=== PATIENT | female | born 1970 | race Caucasian/White ===

== ENCOUNTER 2016-10-08 12:10 | Emergency (ER) | payer SELFPAY ==
[~2016-10-08] VITALS: Ht 165.1 cm; Wt 74.0 kg
[2016-10-08 12:11] VITALS: BP 143/77; PULSE 106; RESP 20; TEMP 98.7; O2SAT 98
--- NOTE | 2016-10-08 12:41 | PD ---
HPI Chief Complaint: Cold / Flu Symptoms Time Seen by Provider: 12:29 Travel History International Travel<30 days: No Contact w/Intl Traveler<30days: No Traveled to known affect area: No History of Present Illness HPI 46-year-old female with history of no significant past medical issues, presents to the ER today for 1 week history of sore throat, body aches, nausea, vomiting , diarrhea, coughing and malaise. She states that her significant other may have just started having similar symptoms. However, she is here today because she states is not improving. Modifying Factors: None Associated Signs & Symptoms: Sore throat, body aches, nausea, vomiting, diarrhea , coughing and malaise Risk Factors: Possible sick contact PFSH Past Medical History ?: Not Past Surgical History Hysterectomy: Yes Social History Tobacco Use: No Allergies-Medications (Allergen,Severity, Reaction): Coded Allergies: No Known Allergies (Unverified , 10/08/16) Reported Meds & Prescriptions Reported Meds & Active Scripts Active No Active Prescriptions or Reported Medications Review of Systems Except as stated in HPI: all other systems reviewed are Neg Physical Exam Narrative GENERAL: Well-developed middle age female patient who is currently moderate distress. Awake and oriented 3. SKIN: Focused skin assessment warm/dry. HEAD: Atraumatic. Normocephalic. EYES: Pupils equal and round. No scleral icterus. No injection or drainage. ENT: No nasal bleeding or discharge. Mucous membranes pink and moist. Mild pharyngeal erythema with no significant exudates. Tonsillar pillars are symmetrical. NECK: Trachea midline. No JVD. CARDIOVASCULAR: Regular rate and rhythm. No murmur appreciated. RESPIRATORY: No accessory muscle use. Clear to auscultation. Breath sounds equal bilaterally. GASTROINTESTINAL: Abdomen soft, non-tender, nondistended. Hepatic and splenic margins not palpable. MUSCULOSKELETAL: No obvious deformities. No clubbing. No cyanosis. No edema. NEUROLOGICAL: Awake and alert. No obvious cranial nerve deficits. Motor grossly within normal limits. Normal speech. PSYCHIATRIC: Appropriate mood and affect; insight and judgment normal. Data Data Last Documented VS Vital Signs Date Time Temp Pulse Resp B/P Pulse Ox O2 Delivery O2 Flow Rate FiO2 10/08/16 12:25 106 19 98 Room Air 10/08/16 12:11 98.7 143/77 Orders Complete Blood Count With Diff (10/08/16 12:32) Basic Metabolic Panel (Bmp) (10/08/16 12:32) Influenzae A/B Antigen (10/08/16 12:32) Chest, Single Ap (10/08/16 12:32) Iv Access Insert/Monitor (10/08/16 12:32) Sodium Chlor 0.9% 1000 Ml Inj (Ns 1000 M (10/08/16 12:45) Ondansetron Inj (Zofran Inj) (10/08/16 12:45) Ketorolac Inj (Toradol Inj) (10/08/16 12:45) Urinalysis - C+S If Indicated (10/08/16 13:09) Urine Culture (10/08/16 13:20) Sulfamet-Trimeth Ds 800-160 Mg (Bactrim (10/08/16 14:00) Labs Laboratory Tests Test 10/08/16 10/08/16 12:48 13:20 White Blood Count 15.2 TH/MM3 Red Blood Count 4.87 MIL/MM3 Hemoglobin 13.9 GM/DL Hematocrit 42.6 % Mean Corpuscular Volume 87.5 FL Mean Corpuscular Hemoglobin 28.6 PG Mean Corpuscular Hemoglobin 32.7 % Concent Red Cell Distribution Width 13.0 % Platelet Count 301 TH/MM3 Mean Platelet Volume 9.5 FL Neutrophils (%) (Auto) 62.8 % Lymphocytes (%) (Auto) 28.4 % Monocytes (%) (Auto) 5.7 % Eosinophils (%) (Auto) 2.4 % Basophils (%) (Auto) 0.7 % Neutrophils # (Auto) 9.5 TH/MM3 Lymphocytes # (Auto) 4.3 TH/MM3 Monocytes # (Auto) 0.9 TH/MM3 Eosinophils # (Auto) 0.4 TH/MM3 Basophils # (Auto) 0.1 TH/MM3 CBC Comment DIFF FINAL Differential Comment Sodium Level 133 MEQ/L Potassium Level 4.5 MEQ/L Chloride Level 99 MEQ/L Carbon Dioxide Level 25.5 MEQ/L Anion Gap 9 MEQ/L Blood Urea Nitrogen 12 MG/DL Creatinine 0.74 MG/DL Estimat Glomerular Filtration 85 ML/MIN Rate Random Glucose 310 MG/DL Calcium Level 8.9 MG/DL Urine Color YELLOW Urine Turbidity HAZY Urine pH 5.5 Urine Specific [place] 1.030 Urine Protein 100 mg/dL Urine Glucose (UA) 1000 mg/dL Urine Ketones TRACE mg/dL Urine Occult Blood TRACE Urine Nitrite NEG Urine Bilirubin NEG Urine Urobilinogen LESS THAN 2.0 MG/DL Urine Leukocyte Esterase SMALL Urine RBC 4 /hpf Urine WBC 38 /hpf Urine Squamous Epithelial 10 /hpf Cells Urine Bacteria MOD /hpf Urine Hyaline Casts 1 /lpf Urine Mucus FEW /lpf Microscopic Urinalysis Comment CULTURE INDICATED MDM Medical Decision Making Medical Screen Exam Complete: Yes Emergency Medical Condition: Yes Medical Record Reviewed: Yes Interpretation(s) Laboratory Tests Test 10/08/16 10/08/16 12:48 13:20 White Blood Count 15.2 TH/MM3 (4.0-11.0) Neutrophils # (Auto) 9.5 TH/MM3 (1.8-7.7) Sodium Level 133 MEQ/L (136-145) Estimat Glomerular Filtration 85 ML/MIN (>89) Rate Random Glucose 310 MG/DL (74-106) Urine Turbidity HAZY (CLEAR) Urine Protein 100 mg/dL (NEG-TRACE) Urine Glucose (UA) 1000 mg/dL (NEG) Urine Ketones TRACE mg/dL (NEG) Urine Occult Blood TRACE (NEG) Urine Leukocyte Esterase SMALL (NEG) Urine RBC 4 /hpf (0-3) Urine WBC 38 /hpf (0-5) Urine Bacteria MOD /hpf (NONE) Urine Mucus FEW /lpf (OCC) Last 24 hours Impressions Chest X-Ray 10/08/16 1232 Signed Impressions: Service Date/Time: Saturday, October 08, 2016 12:35 - CONCLUSION: No acute disease. There is no evidence of pneumonia. Bryan Leung MD Differential Diagnosis Nausea, vomiting, diarrhea, malaise, body aches, cough, sore throatviral syndrome versus influenza versus metabolic issues versus dehydration versus gastroenteritis Narrative Course Abdomen is soft nontender, benign. Patient's white count is 15 and she has a significant UTI which is suspect is causing her to feel worse. She probably does have some underlying viral syndrome as well although it is not influenza. Chest x-ray did not show any signs of acute pneumonia. Patient was given IV fluids, nausea medication, and on reevaluation at 1:45 PM, she is feeling improved. At this point, she was given Bactrim first dose in the ER. My plan would be to release her with symptomatic relief and antibiotics for UTI. Follow -up with primary care physician. Return for any worsening in symptoms as necessary. The plan has been discussed with her and she states understanding. Diagnosis Primary Impression: Viral syndrome Additional Impression: UTI (urinary tract infection) Med/Other Pt SpecificInfo: Prescription(s) given Scripts Ibuprofen (Motrin Ib)200 Mg Bhd121 Mg PO Q6H PRN (PAIN SCALE 1 TO 10) #21 TAB Ref 0 Prov:Kervin Varghese MD 10/08/16 Ondansetron Odt (Zofran Odt)4 Mg Tab4 Mg SL Q6HR PRN (Nausea/Vomiting) #7 TAB Ref 0 Prov:Kervin Varghese MD 10/08/16 Sulfamethoxazole-Trimethoprim (Bactrim DS)800-160 Mg Tab1 Tab PO BID #14 TAB Ref 0 Prov:Kervin Varghese MD 10/08/16 Disposition: 01 DISCHARGE HOME Condition: Stable Kervin Varghese MD October 08, 2016 12:41
[2016-10-08] MEDS ORDERED: KETOROLAC TROMETHAMINE 30 MG/ML (IVP) VIAL IV PUSH ONE (12:45)
[2016-10-08] MEDS ORDERED: ONDANSETRON HCL 4 MG/2 ML VIAL IV PUSH ONE (12:45)
[2016-10-08] MEDS ORDERED: SODIUM CHLOR 0.9% 1000 ML INJ 1,000 ML IV ONE (12:45)
--- NOTE | 2016-10-08 12:48 | RADRPT ---
EXAM DATE/TIME: 10/08/2016 12:35 [facility] COMPARISON: No previous studies available for comparison. INDICATIONS : Chest pain, congestion, cough, and shortness of breath. MEDICAL HISTORY : None. SURGICAL HISTORY : None. ENCOUNTER: Initial ACUITY: 4 - 6 days PAIN SCORE: 6/10 LOCATION: Bilateral chest FINDINGS: A single view of the chest demonstrates the lungs to be symmetrically aerated without evidence of mas s, infiltrate or effusion. The cardiomediastinal contours are unremarkable. Osseous structures are intact. CONCLUSION: No acute disease. There is no evidence of pneumonia. Bryan Leung MD on October 08, 2016 at 12:46 Board Certified Radiologist. This report was verified electronically.
[2016-10-08 13:00] LABS: AUTOMATED NEUTROPHIL # 9.5 TH/MM3 (1.8-7.7); BASOPHIL # 0.1 TH/MM3 (0-0.2); BASOPHIL % 0.7 % (0.0-2.0); EOSINOPHIL # 0.4 TH/MM3 (0-0.4); EOSINOPHIL % 2.4 % (0.0-4.0); HEMATOCRIT 42.6 % (35.0-46.0); HEMO FLAGS DIFF FINAL; LYMPH % 28.4 % (9.0-44.0); LYMPHOCYTE # 4.3 TH/MM3 (1.0-4.8); MEAN CELL VOLUME 87.5 FL (80.0-100.0); MEAN CORPUSCULAR HEMOGLOBIN 28.6 PG (27.0-34.0); MEAN CORPUSCULAR HGB CONC 32.7 % (32.0-36.0); MONO % 5.7 % (0.0-8.0); NEUT % 62.8 % (16.0-70.0); PLATELET COUNT 301 TH/MM3 (150-450); RED BLOOD COUNT 4.87 MIL/MM3 (4.00-5.30); WHITE BLOOD COUNT 15.2 TH/MM3 (4.0-11.0)
[2016-10-08 13:14] LABS: BICARBONATE 25.5 MEQ/L (21.0-32.0); POTASSIUM 4.5 MEQ/L (3.5-5.1)
[2016-10-08 13:42] LABS: BACTERIA, URINE MOD /hpf; BLOOD, URINE TRACE (NEG); COMMENT (UR) CULTURE INDICATED; CULTURE IF INDICATED CULTURE INDICATED; GLUCOSE,URINE 1000 mg/dL (NEG); HYALINE CAST, URINE 1 /lpf (RARE); KETONE, URINE TRACE mg/dL (NEG); MUCUS URINE FEW /lpf (OCC); NITRITE,URINE NEG (NEG); PH, URINE 5.5 (5.0-8.5); SQUAMOUS EPITHELIAL CELL URINE 10 /hpf (0-5); URINE COLOR YELLOW (YELLW/STRAW)
[2016-10-08] MEDS ORDERED: SULFAMETHOXAZOLE-TRIMETHOPRIM DS 800-160 MG TAB PO ONE (14:00)
[2016-10-08] MEDS ORDERED: BACT800T5 PO (14:01)
[2016-10-08] MEDS ORDERED: MOTR200T4 PO (14:01)
[2016-10-08] MEDS ORDERED: ZOFR4TAB3 SL (14:01)
[2016-10-08 14:14] VITALS: RESP 16
== END 2016-10-08 14:40 | disposition home or self-care (01) ==
LOC: NEPD 12:10
DX: B34.9 Viral infection, unspecified (principal); N39.0 Urinary tract infection, site not specified; B96.20 Unspecified Escherichia coli [E. coli] as the cause of diseases classified elsewhere
CPT/HCPCS: 71010; 80048; 81001; 84703; 85025; 87077; 87086; 87186; 87804; 96361; 96374; 96375; 99284; J1885; J2405; J7030

== ENCOUNTER 2016-11-07 20:10 | Observation (INO) | payer SELFPAY ==
[~2016-11-07 20:10] MED LIST: BACT800T5 PO; MOTR200T4 PO; ZOFR4TAB3 SL
[2016-11-07 20:16] VITALS: BP 154/72; PULSE 104; RESP 16; TEMP 98.9; O2SAT 99
[2016-11-07 20:21] VITALS: BP 176/87; PULSE 125
--- NOTE | 2016-11-07 20:37 | PD ---
HPI Chief Complaint: Numbness right side of body Time Seen by Provider: 20:31 Travel History International Travel<30 days: No Contact w/Intl Traveler<30days: No Traveled to known affect area: No History of Present Illness HPI 46yo F with PMH of DM presents to the ED with c/o right sided numbness and heaviness since 12pm today. States her right face, arm and leg feels numb and his right arm and leg feels heavy. Pt is complaining of midsternal chest pressure as well that is intermittent and right arm pain. Associated with mild sob and nausea. Denies any fever, cough, vomiting, abdominal pain, focal weakness or numbness. PFSH Past Medical History ?: Unknown Past Surgical History Hysterectomy: Yes Social History Tobacco Use: No Allergies-Medications (Allergen,Severity, Reaction): Coded Allergies: No Known Allergies (Unverified , 11/07/16) Reported Meds & Prescriptions Reported Meds & Active Scripts Active Zofran Odt (Ondansetron Odt) 4 Mg Tab 4 Mg SL Q6HR PRN Reported Lantus Inj (Insulin Glargine) 1,000 Unit/10 Ml Vial 36 Units SQ AC BREAKFAST Review of Systems Except as stated in HPI: all other systems reviewed are Neg Physical Exam Narrative GENERAL: 46yo F in mild distress. SKIN: Focused skin assessment warm/dry. HEAD: Atraumatic. Normocephalic. EYES: Pupils equal and round. No scleral icterus. No injection or drainage. ENT: No nasal bleeding or discharge. Mucous membranes pink and moist. NECK: Trachea midline. No JVD. CARDIOVASCULAR: Regular rate and rhythm. No murmur appreciated. RESPIRATORY: No accessory muscle use. Clear to auscultation. Breath sounds equal bilaterally. GASTROINTESTINAL: Abdomen soft, non-tender, nondistended. No rebound tenderness or guarding. MUSCULOSKELETAL: No obvious deformities. No clubbing. No cyanosis. No edema. NEUROLOGICAL: Awake and alert. No obvious cranial nerve deficits. Unable to keep right arm up for 10 and unable to keep right leg up for 5 sec. NIH scale 5. Decreased sensation in right face, arm and leg. PSYCHIATRIC: Appropriate mood and affect; insight and judgment normal. Data Data Last Documented VS Vital Signs Date Time Temp Pulse Resp B/P Pulse Ox O2 Delivery O2 Flow Rate FiO2 11/07/16 21:25 96 16 127/71 99 Room Air 11/07/16 20:[address] Brain W/O Iv Contrast(Rout) (11/07/16 ) Complete Blood Count With Diff (11/07/16 20:31) Basic Metabolic Panel (Bmp) (11/07/16 20:31) Prothrombin Time / Inr (Pt) (11/07/16 20:31) Act Partial Throm Time (Ptt) (11/07/16 20:31) Troponin I (11/07/16 20:31) Ckmb (Isoenzyme) Profile (11/07/16 20:31) Chest, Single Ap (11/07/16 ) Bhcg Screen Qualitative (11/07/16 20:31) Ed Urine Pregnancytest Poc (11/07/16 20:31) Blood Glucose (11/07/16 20:31) Aspirin (Aspirin) (11/07/16 21:45) Labs Laboratory Tests Test 11/07/16 20:30 White Blood Count 13.6 TH/MM3 Red Blood Count 4.63 MIL/MM3 Hemoglobin 13.4 GM/DL Hematocrit 40.9 % Mean Corpuscular Volume 88.4 FL Mean Corpuscular Hemoglobin 28.9 PG Mean Corpuscular Hemoglobin 32.7 % Concent Red Cell Distribution Width 13.7 % Platelet Count 318 TH/MM3 Mean Platelet Volume 9.9 FL Neutrophils (%) (Auto) 61.1 % Lymphocytes (%) (Auto) 29.3 % Monocytes (%) (Auto) 6.9 % Eosinophils (%) (Auto) 2.1 % Basophils (%) (Auto) 0.6 % Neutrophils # (Auto) 8.3 TH/MM3 Lymphocytes # (Auto) 4.0 TH/MM3 Monocytes # (Auto) 0.9 TH/MM3 Eosinophils # (Auto) 0.3 TH/MM3 Basophils # (Auto) 0.1 TH/MM3 CBC Comment DIFF FINAL Differential Comment Prothrombin Time 9.2 SEC Prothromb Time International 0.8 RATIO Ratio Activated Partial 29.3 SEC Thromboplast Time Sodium Level 137 MEQ/L Potassium Level 4.3 MEQ/L Chloride Level 103 MEQ/L Carbon Dioxide Level 25.1 MEQ/L Anion Gap 9 MEQ/L Blood Urea Nitrogen 11 MG/DL Creatinine 0.88 MG/DL Estimat Glomerular Filtration 70 ML/MIN Rate Random Glucose 333 MG/DL Calcium Level 9.6 MG/DL Total Creatine Kinase 38 U/L Troponin I LESS THAN 0.02 NG/ML Beta HCG, Qualitative LESS THAN 1 MIU/ML MDM Medical Decision Making Medical Screen Exam Complete: Yes Emergency Medical Condition: Yes Interpretation(s) EKG": Sinus tachycardia at 100bpm. LAD. Q wave V1, V2. Differential Diagnosis CVA vs. ACS vs. anxiety Narrative Course 46yo F with numbness in right side of body including face, arm and leg and heaviness in right arm, leg today starting at 12pm. Pt also with intermittent pressure in chest. States this has never happen before. Labs reviewed, mild leukocytosis at 13.6. Glucose elevated at 333, pt is on insulin for her diabetes. CO2 normal, no increased anion gap. Troponin negative. negative. CXR negative. CT brain negative. Pt was initially hypertensive but after sitting in the medical bed, repeat BP normal. Pt given aspirin 325mg PO. Pt reevaluated at bedside and states she still feels numb in her right face, arm and leg. Will admit for CVA work up as well as chest pain. Discussed with Dr. Fonseca and accepted to his service. Diagnosis Primary Impression: CVA (cerebral vascular accident) Qualified Code: I63.9 - Cerebrovascular accident (CVA), unspecified mechanism Admitting Information Admitting Physician Requests: Denise Lance DO Nov 07, 2016 20:37
[2016-11-07 20:47] LABS: AUTOMATED NEUTROPHIL # 8.3 TH/MM3 (1.8-7.7); BASOPHIL # 0.1 TH/MM3 (0-0.2); BASOPHIL % 0.6 % (0.0-2.0); EOSINOPHIL # 0.3 TH/MM3 (0-0.4); EOSINOPHIL % 2.1 % (0.0-4.0); HEMATOCRIT 40.9 % (35.0-46.0); HEMO FLAGS DIFF FINAL; LYMPH % 29.3 % (9.0-44.0); MEAN CELL VOLUME 88.4 FL (80.0-100.0); MEAN CORPUSCULAR HEMOGLOBIN 28.9 PG (27.0-34.0); MEAN CORPUSCULAR HGB CONC 32.7 % (32.0-36.0); MONO % 6.9 % (0.0-8.0); NEUT % 61.1 % (16.0-70.0); PLATELET COUNT 318 TH/MM3 (150-450); RED BLOOD COUNT 4.63 MIL/MM3 (4.00-5.30); RED CELL DISTRIBUTION WIDTH 13.7 % (11.6-17.2); WHITE BLOOD COUNT 13.6 TH/MM3 (4.0-11.0)
--- NOTE | 2016-11-07 20:56 | RADRPT ---
EXAM DATE/TIME: 11/07/2016 20:52 [facility] COMPARISON: CHEST SINGLE AP, October 08, 2016, 12:35. INDICATIONS : Dizziness and left arm numbness. MEDICAL HISTORY : None. SURGICAL HISTORY : None. ENCOUNTER: Initial ACUITY: 1 day PAIN SCORE: 0/10 LOCATION: Bilateral chest FINDINGS: A single view of the chest demonstrates the lungs to be symmetrically aerated without evidence of mas s, infiltrate or effusion. The cardiomediastinal contours are unremarkable. Osseous structures are intact. CONCLUSION: No acute disease. Daren Desai MD on November 07, 2016 at 20:54 Board Certified Radiologist. This report was verified electronically.
[2016-11-07 21:05] LABS: APTT (PATIENT) 29.3 SEC (24.3-30.1); INTERNATIONAL NORMALIZED RATIO 0.8 RATIO; PROTHROMBIN TIME - PATIENT 9.2 SEC (9.8-11.6)
--- NOTE | 2016-11-07 21:08 | RADRPT ---
EXAM DATE/TIME: 11/07/2016 21:00 [facility] COMPARISON: No previous studies available for comparison. INDICATIONS : Patient with right sided numbness. RADIATION DOSE: 56.35 CTDIvol (mGy) MEDICAL HISTORY : None SURGICAL HISTORY : Hysterectomy. ENCOUNTER: Initial ACUITY: 1 day PAIN SCALE: 0/10 LOCATION: cranial TECHNIQUE: Multiple contiguous axial images were obtained of the head. Using automated exposure control and adj ustment of the mA and/or kV according to patient size, radiation dose was kept as low as reasonably a chievable to obtain optimal diagnostic quality images. FINDINGS: CEREBRUM: The ventricles are normal for age. No evidence of midline shift, mass lesion, hemorrhage or acute in farction. No extra-axial fluid collections are seen. POSTERIOR FOSSA: The cerebellum and brainstem are intact. The 4th ventricle is midline. The cerebellopontine angle i s unremarkable. EXTRACRANIAL: The visualized portion of the orbits is intact. SKULL: The calvaria is intact. No evidence of skull fracture. CONCLUSION: No acute disease. Daren Desai MD on November 07, 2016 at 21:05 Board Certified Radiologist. This report was verified electronically.
[2016-11-07 21:10] LABS: ANION GAP 9 MEQ/L (5-15); BICARBONATE 25.1 MEQ/L (21.0-32.0); BLOOD UREA NITROGEN 11 MG/DL (7-18); CHLORIDE 103 MEQ/L (98-107); GLOMERULAR FILTRATION RATE 70 ML/MIN (>89); POTASSIUM 4.3 MEQ/L (3.5-5.1); SODIUM (NA) 137 MEQ/L (136-145)
[2016-11-07] MEDS ORDERED: LANTUS2P SQ (21:20)
[2016-11-07 21:25] VITALS: BP 127/71; PULSE 96; RESP 16; O2SAT 99
[2016-11-07 21:30] LABS: BHCG SCREEN QUALITATIVE LESS THAN 1 MIU/ML (0-5); CREATINE KINASE 38 U/L (26-192)
[2016-11-07] MEDS ORDERED: ASPIRIN 325 MG TAB PO ONE (21:45)
[2016-11-07] MEDS ORDERED: SODIUM CHLORIDE 0.9% FLUSH 5 ML FLUSH IV FLUSH PRN (23:30)
[2016-11-07] MEDS ORDERED: LABETALOL HCL 100 MG/20 ML VIAL IV PRN (23:30)
[2016-11-07] MEDS ORDERED: DEXTROSE 50% IN WATER 50 ML VIAL(D50) IV PUSH PRN (23:30)
[2016-11-07] MEDS ORDERED: ENALAPRILAT 1.25 MG/ML VIAL IV PRN (23:30)
[2016-11-07] MEDS ORDERED: GLUCAGON 1 MG/ML VIAL OTHER PRN (23:30)
--- NOTE | 2016-11-07 23:33 | HHI.HP ---
[facility] No Primary Care Physician Admission Diagnosis CVA Diagnoses: Chief Complaint: Right arm tingling and numbness and weakness along with right face numbness Travel History International Travel<30 Days: No Contact w/Intl Traveler <30 Da: No Traveled to Known Affected Are: No History of Present Illness 46 years old female with history of diabetes mellitus presented to the ED complaining of sudden onset of right sided facial numbness along with right upper extremity weakness/heaviness feeling started at 12 noon today then slightly the heaviness feeling subsided and replaced by tingling, she also stated that her right leg slightly affected her gait so she had to sit down, at the same time she had lightheadedness and dizziness with a foggy vision and chest heaviness feeling, also mentioned nausea. In ED she had a CT of the head which showed no hemorrhage, chest x-ray was normal, EKG sinus tachycardia. Review of Systems Except as stated in HPI: all other systems reviewed are Neg All systems reviewed and was positive for what is mentioned in history of present illness otherwise negative Past Family Social History Past Medical History Diabetes mellitus Past Surgical History section Allergies: Coded Allergies: No Known Allergies (Unverified , 11/07/16) Family History Half pack per day for many years, denied alcohol or illicit drug abuse Social History Diabetes mellitus runs in the family, grandmother had stroke Physical Exam Vital Signs Vital Signs Date Time Temp Pulse Resp B/P Pulse Ox O2 Delivery O2 Flow Rate FiO2 11/07/16 21:25 96 16 127/71 99 Room Air 11/07/16 20:30 95 16 98 Room Air 11/07/16 20:21 125 176/87 11/07/16 20:16 98.9 104 16 154/72 99 Physical Exam GENERAL: This is a well-nourished, well-developed patient, in no apparent distress. SKIN: No rashes, warm and dry HEAD: Atraumatic. Normocephalic. EYES: Pupils equal round and reactive. Extraocular motions intact. No scleral icterus. ENT: Nose without bleeding, or drainage, Airway patent. NECK: Trachea midline. Supple CARDIOVASCULAR: Regular rate and rhythm without murmurs, gallops, or rubs. RESPIRATORY: Fair air entry bilaterally. No wheezes, rales, or rhonchi. GASTROINTESTINAL: Abdomen soft, non-tender, nondistended. Positive bowel sounds MUSCULOSKELETAL: Extremities without clubbing, cyanosis, or edema. Pedal pulses appreciated NEUROLOGICAL: Awake and alert oriented time 4, cranial nerves II-12 intact, motor strength 5 out of 5 in the left upper lower extremity 4 out of 5 in the right upper extremity, sensation is normal, speech is normal Laboratory Laboratory Tests Test 11/07/16 20:30 White Blood Count 13.6 Red Blood Count 4.63 Hemoglobin 13.4 Hematocrit 40.9 Mean Corpuscular Volume 88.4 Mean Corpuscular Hemoglobin 28.9 Mean Corpuscular Hemoglobin 32.7 Concent Red Cell Distribution Width 13.7 Platelet Count 318 Mean Platelet Volume 9.9 Neutrophils (%) (Auto) 61.1 Lymphocytes (%) (Auto) 29.3 Monocytes (%) (Auto) 6.9 Eosinophils (%) (Auto) 2.1 Basophils (%) (Auto) 0.6 Neutrophils # (Auto) 8.3 Lymphocytes # (Auto) 4.0 Monocytes # (Auto) 0.9 Eosinophils # (Auto) 0.3 Basophils # (Auto) 0.1 CBC Comment DIFF FINAL Differential Comment Prothrombin Time 9.2 Prothromb Time International 0.8 Ratio Activated Partial 29.3 Thromboplast Time Sodium Level 137 Potassium Level 4.3 Chloride Level 103 Carbon Dioxide Level 25.1 Anion Gap 9 Blood Urea Nitrogen 11 Creatinine 0.88 Estimat Glomerular Filtration 70 Rate Random Glucose 333 Calcium Level 9.6 Total Creatine Kinase 38 Troponin I LESS THAN 0.02 Beta HCG, Qualitative LESS THAN 1 Result Diagram: 11/07/16202911/07/162029 Imaging Last Impressions Head CT 11/07/16 0000 Signed Impressions: Service Date/Time: Monday, November 07, 2016 21:00 - CONCLUSION: No acute disease. Daren Desai MD Chest X-Ray 11/07/16 0000 Signed Impressions: Service Date/Time: Monday, November 07, 2016 20:52 - CONCLUSION: No acute disease. Daren Desai MD Assessment and Plan Assessment and Plan 46 years old female presented with Right facial numbness with right upper extremity pain numbness and weakness started 11 hours ago at 12 noon rule out CVA History of recent stressor event with her mom having new news of cancer History of diabetes mellitus SCD and Lovenox DVT prophylaxis Plan: Patient was given aspirin, CT of the brain reviewed personally by me no hemorrhage We'll keep head of the bed flat Neuro check every 4 hours, NIH scale monitoring MRI/MRA of brain, Holter monitor, Doppler ultrasound of the carotid, 2-D echo PT, swallowing eval, nothing by mouth Labetalol Vasotec with stroke parameter, permissive hypertension Consult neurology If these are negative consider underlying psychiatry problem related to her stress Resume her basal insulin with Accu-Chek and insulin sliding scale Check hemoglobin A1c SCD and Lanoxin for DVT prophylaxis Discussed Condition With Patient in ED physician Yeison Fonseca MD Nov 07, 2016 23:33
[2016-11-08] VITALS (8 sets, daily range): BP systolic 105–121; BP diastolic 57–75; PULSE 80–93; RESP 16–20; TEMP 97.9–98.1; O2SAT 97–100
[2016-11-08] MEDS ORDERED: ENOXAPARIN SODIUM 40 MG/0.4 ML SYRINGE SQ SCH
[2016-11-08 03:13] LABS: LDL CHOLESTEROL 103 MG/DL (0-99)
[2016-11-08 03:16] LABS: CREATINE KINASE 26 U/L (26-192)
[2016-11-08] MEDS: INSULIN ASPART SUPPLEMENTAL SCALE SQ SCH ×2 (06:17→11:00)
[2016-11-08] MEDS ORDERED: ASPIRIN 325 MG TAB PO SCH (09:00)
[2016-11-08] MEDS ORDERED: SODIUM CHLORIDE 0.9% FLUSH 5 ML FLUSH IV FLUSH SCH ×2 (09:00→21:00)
--- NOTE | 2016-11-08 09:15 | HHI.PR ---
Subjective Remarks Follow-up for right-sided numbness. Ambulating in her room upon arrival. The patient reports her symptoms have improved and nearly resolved today. She does continue to report a sensation on the right side of her body is a bit less than on the left. She denies any further tingling whenever she touches her right face. She denies any weakness. She denies any chest pain or shortness of breath. She reports she hasn't been to a doctor in quite a while since she moved to [place] and does not recall her last A1c. Objective Vitals Vital Signs Date Time Temp Pulse Resp B/P Pulse Ox O2 Delivery O2 Flow Rate FiO2 11/08/16 07:57 97.9 83 20 115/57 99 11/08/16 07:27 98 21 11/08/16 04:15 93 11/08/16 02:10 98.0 91 20 119/62 97 11/08/16 01:05 80 16 120/75 100 Room Air 11/07/16 21:25 96 16 127/71 99 Room Air 11/07/16 20:30 95 16 98 Room Air 11/07/16 20:21 125 176/87 11/07/16 20:16 98.9 104 16 154/72 99 Result Diagram: 11/07/16 2030 11/07/16 2030 Imaging Last Impressions Head CT 11/07/16 0000 Signed Impressions: Service Date/Time: Monday, November 07, 2016 21:00 - CONCLUSION: No acute disease. Daren Desai MD Chest X-Ray 11/07/16 0000 Signed Impressions: Service Date/Time: Monday, November 07, 2016 20:52 - CONCLUSION: No acute disease. Daren Desai MD Objective Remarks GENERAL: Well-developed well-nourished. In no acute distress. SKIN: Warm and dry. No lesions noted. HEENT: Normocephalic. Pupils equal and round. Mucous membranes pink and moist. CARDIOVASCULAR: Regular rate and rhythm. No murmur appreciated. RESPIRATORY: No accessory muscle use. Clear to auscultation. Breath sounds equal bilaterally. GASTROINTESTINAL: Abdomen soft, non-tender, nondistended. Bowel sounds x4. MUSCULOSKELETAL: No obvious deformities. No clubbing or cyanosis. No edema. NEUROLOGICAL: Awake and alert. Moves upper and lower extremities spontaneously. Normal speech. Strength 5/5. Sensation subjectively decreased on the right. PSYCHIATRIC: Appropriate mood and affect; insight and judgment normal. A/P Assessment and Plan 46-year-old female with past medical history of diabetes mellitus who presented with right-sided neuro symptoms TIA: Symptoms improving. Reviewed: Head CT with no acute process. Lipid profile with triglycerides 317, LDL 193, HDL 32. Troponin negative 2. EKG with sinus tachycardia rate 105, nonspecific T-wave changes. Aspirin and statin Head of the bed flat Neuro check every 4 hours, NIH scale monitoring MRI/MRA of brain, Holter monitor, Doppler ultrasound of the carotid, 2-D echo PT, swallowing eval, nothing by mouth Labetalol Vasotec with stroke parameter, permissive hypertension Consulted neurology Diabetes mellitus: Chronic, uncontrolled. Check hemoglobin A1c. Resume baseline insulin when not nothing by mouth. SSI coverage. Monitor Accu-Cheks. DVT prophylaxis: SCDs Discharge Planning Symptoms improving. Follow-up results of stroke workup as above. Jj Jean Baptiste Nov 08, 2016 09:15
[2016-11-08] MEDS ORDERED: LORazepam 2 MG/ML VIAL IV PUSH ONE (09:30)
[2016-11-08 10:50] LABS: CREATINE KINASE 33 U/L (26-192)
--- NOTE | 2016-11-08 11:38 | RADRPT ---
EXAM DATE/TIME: 11/08/2016 09:54 [facility] COMPARISON: No previous studies available for comparison. INDICATIONS : Cerebrovascular accident. MEDICAL HISTORY : Right sided numbness. Diabetes. SURGICAL HISTORY : Hysterectomy. section. ENCOUNTER: Initial ACUITY: 3 days PAIN SCORE: 2/10 LOCATION: Bilateral neck PEAK SYSTOLIC VELOCITIES (cm/sec): ICA/CCA RATIO: Right: 1.0 Left: 1.0 ICA: Right: 105.8 Left: 95.3 CCA: Right: 104.7 Left: 96.3 ECA: Right: 79.8 Left: 95.3 VERTEBRAL: Right: 57.8 antegrade Left: 44.6 antegrade Elevated flow velocities and ICA/CCA ratios have been found to correlate with increased degrees of vessel stenosis, calculated as percentage of diameter relative to a normal segment of distal ICA/CCA FINDINGS: RIGHT CAROTID: No significant stenosis is visualized. The waveforms are within normal limits. LEFT CAROTID: Minimal plaque in the left carotid bulb. No significant stenosis is visualized. The waveforms are wi thin normal limits. VERTEBRAL ARTERIES: Antegrade flow is seen in both vertebral arteries. MISCELLANEOUS: None. CONCLUSION: 1. Normal duplex ultrasound examination of the carotid arteries. Baldemar Toth MD on November 08, 2016 at 11:31 Board Certified Radiologist. This report was verified electronically.
[2016-11-08] MEDS ORDERED: SODIUM CHLOR 0.9% 1000 ML INJ 1,000 ML IV SCH (12:11)
[2016-11-08] MEDS ORDERED: SODIUM CHLORIDE 0.9% FLUSH 5 ML FLUSH IV FLUSH PRN (12:15)
[2016-11-08] MEDS ORDERED: DEXTROSE 50% IN WATER 50 ML VIAL(D50) IV PUSH PRN (12:15)
[2016-11-08] MEDS ORDERED: GLUCAGON 1 MG/ML VIAL OTHER PRN (12:15)
--- NOTE | 2016-11-08 12:44 | MB ---
cc: EVAN AGGARWAL M.D. DATE OF CONSULTATION: 11/08/2016 REASON FOR CONSULTATION Stroke. HISTORY OF PRESENT ILLNESS Ms. Mayo is a very nice 46-year-old female who began to experience pain in the right arm yesterday which was followed by numbness. The numbness also involved the right face and the right lower extremity. She had some weakness on that side as well. She had no speech changes. She had no headache. She feels somewhat better today but still numb in the right hand and right face. PAST MEDICAL HISTORY 1. Diabetes. 2. Migraine headaches in the past. ALLERGIES None known. MEDICATIONS Current medications are: 1. Lipitor 10 mg daily. 2. Aspirin 325 mg daily. 3. Vasotec p.r.n. NEUROLOGIC EXAMINATION Vital Signs: Blood pressure 115/61, pulse 81, respirations 16, temperature 98 degrees. Higher Cortical Function: Normal. Cranial Nerves: Intact. 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 Right leg slightly weak proximally at 4/5 as well. She has diminished fine motor skills in the right hand. There is no pronator drift. Sensory exam is subjectively diminished in the right arm to soft touch compared to the left. Reflexes are 1+ symmetric with no Babinski sign present. IMAGING CT scan of the brain is normal. Carotid ultrasound is normal with no significant stenosis. LABORATORY White count 13,600, hemoglobin 13.4, hematocrit 40%, platelet count 318,000. PT 9.2, INR 0.8, APTT 29. Sodium 137, potassium 4.3, chloride 103, CO2 25, BUN 11, creatinine 0.88, GFR 70, glucose 333. LDL 103, cholesterol 198, triglycerides 317, HDL 32. EKG Normal sinus rhythm. IMPRESSION Possible lacunar stroke. Complicated migraine or migraine equivalent would also be in the differential. RECOMMENDATIONS Continue aspirin. Will check an MRI and MRA of the brain, echocardiogram. She does have a high LDL, therefore agree with Lipitor. She may require MATI depending on the results of the MRI. Also check hypercoagulable work-up. MD NAN Dinh/ENRIQUETA /12:12 PM /12:31 PM
[2016-11-08 13:23] LABS: BETA HCG QUANT LESS THAN 1 MIU/ML (0-5)
--- NOTE | 2016-11-08 15:36 | RADRPT ---
EXAM DATE/TIME: 11/08/2016 13:45 [facility] COMPARISON: No previous studies available for comparison. INDICATIONS : CVA. Right sided numbness. MEDICAL HISTORY : Diabetes mellitus type 2. SURGICAL HISTORY : section. Hernia repair. ENCOUNTER: Initial ACUITY: 1 day PAIN SCORE: 0/10 LOCATION: Head. Please note a normal MRA of the brain does not entirely exclude the possibility of a small aneurysm, nor the possibility of distal intracranial vessel disease. TECHNIQUE: 3D time of flight MRA was performed. Source images, multiplanar STS MIP, and 3D volume MIP reconstru ctions were reviewed. FINDINGS: There is excellent visualization of the major intracranial arteries out to the second-order branch ve ssels. There is no evidence for aneurysm, vessel truncation or stenosis, and no evidence for vascula r malformation. CONCLUSION: 1. Negative examination. Robin Conklin MD on November 08, 2016 at 15:33 Board Certified Radiologist. This report was verified electronically.
--- NOTE | 2016-11-08 15:39 | RADRPT ---
EXAM DATE/TIME: 11/08/2016 13:45 [facility] COMPARISON: No previous studies available for comparison. INDICATIONS : CVA. Right sided weakness. MEDICAL HISTORY : Diabetes mellitus type 2. SURGICAL HISTORY : section. Hernia repair. ENCOUNTER: Initial ACUITY: 1 day PAIN SCORE: 0/10 LOCATION: Head. TECHNIQUE: Multiplanar, multisequence MRI of the brain was performed without contrast. FINDINGS: CEREBRUM: The ventricles are normal for age. No evidence of midline shift, mass lesion, hemorrhage or acute in farction. No extraaxial fluid collections are seen. The pituitary gland and suprasellar cistern are normal in configuration. WHITE MATTER: No significant signal abnormalities are seen in the white matter. POSTERIOR FOSSA: The cerebellum and brainstem are intact. The 4th ventricle is midline. The cerebellopontine angle is unremarkable. The cerebellar tonsils are normal in position. DIFFUSION IMAGING: No focal areas of restricted diffusion are seen. No evidence of acute infarction. EXTRACRANIAL: The visualized portions of the orbits and paranasal sinuses are unremarkable. CONCLUSION: 1. Negative examination. Robin Conklin MD on November 08, 2016 at 15:34 Board Certified Radiologist. This report was verified electronically.
[2016-11-08] MEDS ORDERED: INSULIN ASPART SUPPLEMENTAL SCALE SQ SCH (16:00)
[2016-11-08 17:30] LABS: HEMOGLOBIN A1a 1.5 %; HEMOGLOBIN A1b 1.2 %; HEMOGLOBIN Ao 76.2 %; HEMOGLOBIN F 1.9 %; HEMOGLOBIN LA1C 2.8 %; HEMOGLOBIN P3 4.7 %
--- NOTE | 2016-11-08 18:19 | EKG ---
Date Performed: 11/07/2016 Time Performed: 20:27:54 PTAGE: 46 years EKG: SINUS TACHYCARDIA NONSPECIFIC T-WAVE ABNORMALITY POOR R-WAVE PROGRESSION NON-SPECIFIC ST/T WAVE CHANGES ABNORMAL RHYTHM ECG NO PREVIOUS TRACING DOCTOR: Jose Velázquez Interpretating Date/Time 11/08/2016 18:18:34
--- NOTE | 2016-11-08 19:17 | ECHRPT ---
Indication: Indication: CONCLUSIONS The left ventricular systolic function is normal with an estimated ejection fraction in the range of 55-60%. Left ventricular diastolic function parameters are probably normal. Trace mitral valve regurgitation. There is trace tricuspid valve regurgitation. BP: 115 / 57 HR: 93 Rhythm: Sinus MEASUREMENTS (Male / Female) Normal Values Technical Quality:Fair 2D ECHO LV Diastolic Diameter PLAX 5.0 cm 4.2 - 5.9 / 3.9 - 5.3 cm LV Systolic Diameter PLAX 3.4 cm IVS Diastolic Thickness 0.8 cm 0.6 - 1.0 / 0.6 - 0.9 cm LVPW Diastolic Thickness 0.8 cm 0.6 - 1.0 / 0.6 - 0.9 cm LV Relative Wall Thickness 0.3 LVOT Diameter 1.8 cm Aortic Root Diameter 2.6 cm LA Systolic Diameter LX 3.5 cm 3.0 - 4.0 / 2.7 - 3.8 cm M-MODE AV Cusp Separation MM 1.9 cm DOPPLER AV Peak Velocity 138.0 cm/s AV Peak Gradient 7.6 mmHg AV Mean Gradient 5.0 mmHg AV Velocity Time Integral 27.1 cm LVOT Peak Velocity 93.2 cm/s LVOT Peak Gradient 3.5 mmHg LVOT Velocity Time Integral 17.4 cm LVOT Cardiac Index 2317.0 cm/minm AV Area Cont Eq vti 1.6 cm AV Area Cont Eq pk 1.7 cm Mitral E Point Velocity 97.2 cm/s Mitral A Point Velocity 71.6 cm/s Mitral E to A Ratio 1.4 LV E' Lateral Velocity 5.9 cm/s Mitral E to LV E' Lateral Ratio 16.6 LV E' Septal Velocity 6.4 cm/s Mitral E to LV E' Septal Ratio 15.1 TR Peak Velocity 238.0 cm/s TR Peak Gradient 22.7 mmHg PV Peak Velocity 46.5 cm/s PV Peak Gradient 0.9 mmHg FINDINGS Left Ventricle Normal left ventricular size. Wall thickness is normal. No regional wall motion abnormalities are pr esent. The left ventricular systolic function is normal with an estimated ejection fraction in the range of 55-60%. Left ventricular diastolic function parameters are probably normal. Right Ventricle Normal right ventricular size and systolic function. Left Atrium The left atrial size is normal. Right Atrium The right atrial size is normal. Atrial Septum The interatrial septum not well visualized. Aorta The aortic root and proximal ascending aorta are not well visualized. Mitral Valve Structurally normal mitral valve. Trace mitral valve regurgitation. No mitral valve stenosis. Aortic Valve Grossly normal. No aortic valve regurgitation. No aortic valve stenosis. Tricuspid Valve Structurally normal tricuspid valve. There is trace tricuspid valve regurgitation. No tricuspid valv e stenosis. Pulmonary Valve The pulmonary valve is not well visualized. No pulmonary valve regurgitation or stenosis. Vessels The inferior vena cava is normal in size. Pericardium No pericardial effusion. Jose Velázquez DO Edited by: [email or web address] Business Rules Developer (Electronically Signed) Final Date:08 November 2016 18:30 Amended: 08 November 2016 19:16
[2016-11-08] MEDS ORDERED: ATORVASTATIN 10 MG TAB PO SCH (21:00)
== END 2016-11-08 20:35 | disposition left against medical advice (07) ==
LOC: NEPC 20:10 → NEDA 21:55 → NEPGCP 11-08 01:46
PROVIDERS: ADMIT Hospitalist; ATTEND Hospitalist
DX: I63.9 Cerebral infarction, unspecified (principal); R07.89 Other chest pain; E78.89 Other lipoprotein metabolism disorders; E11.65 Type 2 diabetes mellitus with hyperglycemia; Z79.4 Long term (current) use of insulin; Z82.3 Family history of stroke; R00.0 Tachycardia, unspecified
CPT/HCPCS: 70450; 70544; 70551; 71010; 80048; 80061; 82550; 82948; 83036; 84484; 84702; 84703; 85025; 85610; 85730; 92610; 93005; 93306; 93880; 97162; 99285; G0378; G8987; G8988; G8989; G8996; G8997; G8998; J1650; J1815; J2060; J7030